=== PATIENT | male | born 1965 | race African-American/Black ===

== ENCOUNTER 2018-03-23 08:11 | Emergency (ER) | payer SELFPAY ==
[2018-03-23] MEDS ORDERED: predniSONE 20 MG TAB ONE (08:38)
[2018-03-23] MEDS ORDERED: Morphine 4 MG/ML Carpuject ONE (08:38)
== END 2018-03-23 09:00 | disposition home or self-care (01) ==
LOC: SCSER 08:11
DX: M54.41 Lumbago with sciatica, right side (principal); F17.210 Nicotine dependence, cigarettes, uncomplicated
CPT/HCPCS: 96372; J2270; J7506